=== PATIENT | female | born 1990 | race Caucasian/White ===

== ENCOUNTER 2017-01-29 23:02 | Emergency (ER) | payer OTHER ==
[~2017-01-29 23:02] MED LIST: ANTIBIOTIC PO; BACLOFEN10 MG PO; CIPRO PO; CLEOCIN HCL300 M1 PO; FLEXERIL10 MG PO; MEDROL4 MG/DOSE- PO; METHADONE PO; MOTRIN600 MG PO; NO MEDICATIONS; PYRIDIUM100 MG PO; STERAPRED5 MG/DOSE1 PO; TYLENOL #3 PO; VOLTAREN75 MG PO; ZOFRAN ODT4 MG PO
== END 2017-01-29 23:53 | disposition home or self-care (01) ==
LOC: SED 23:02
DX: L02.413 Cutaneous abscess of right upper limb (principal); F17.200 Nicotine dependence, unspecified, uncomplicated
CPT/HCPCS: 10060; 99283